=== PATIENT | female | born 1995 | race Caucasian/White ===

== ENCOUNTER 2024-08-03 07:14 | Inpatient (IN) | payer OTHER, SELFPAY ==
[2024-08-03] VITALS (18 sets, daily range): BP systolic 101–136; BP diastolic 56–86; PULSE 87–114; RESP 16–20; TEMP 36.3–37.1; O2SAT 97–99; BMI 35.2
[2024-08-03] MEDS: Lactated Ringers 1,000 ML 999 ML IV (07:25)
[2024-08-03 07:41] LABS: Absolute Lymphocyte Count 1.13 X10^3/uL (0.83-4.51); Basophil# 0.03 X10^3/uL; Basophil% 0.1 % (0-1); Eosinophil# 0.01 X10^3/uL; Hematocrit 37.3 % (37-47); Hemoglobin 12.3 g/dL (12.0-15.0); Lymphocyte # 1.13 X10^3/ul (0.83-4.51); Lymphocyte % 4.9 % (19-41); Mean Corpuscular Hgb 27.8 pg (27.0-32.0); Mean Corpuscular Volume 84.2 fL (81-99); Mean Platelet Vol. 11.2 fl (6.2-12.0); Monocyte# 0.53 X10^3/uL; Monocyte% 2.3 % (0-10); NRBC Flagged by Analyzer 0 % (0-5); Neutrophil # 20.99 X10^3/uL (2.7-7.7); Neutrophil % 91.7 % (47-70); POSITIVE DIFFERENTIAL YES; Platelet Count 264 K/mm3 (150-450); RBC Distribution Width CV 13.7 % (11.6-14.6); RBC Distribution Width SD 41.9 fl (35.1-43.9); Red Blood Count 4.43 M/mm3 (4.2-5.4); White Blood Count 22.9 K/mm3 (4.4-11.0)
[2024-08-03 07:47] LABS: Differential Indicated SCAN CRITERIA MET
--- NOTE | 2024-08-03 07:47 | HP.PCM.OB_ITS ---
HPI - General General Date of Admission: 08/03/24 HPI Narrative LEA PACK, is a 29 F @ 41 weeks who presents c/o SROM and ctx- found to be 8 cm on arrival. PFSH [facility] Home Medications ?Medication ?Instructions ?Recorded ?Last Taken ?Type aspirin 81 mg tablet,delayed 81 mg PO DAILY 08/03/24 U nknown History release (Adult Low Dose Aspirin) sertraline 50 mg tablet (Zoloft) 50 mg PO DAILY 08/01/24 20:00 History Allergy/AdvReac Type Severity Reaction Status Date / Time No Known Allergies Allergy Verified 08/03/24 06:51 NST FHR Rate Baby A Baseline: 135 Variability:: Moderate Decelerations:: Variable Vital Signs Vital Signs Vital Signs: 08/03/24 06:58 08/03/24 06:58 08/03/24 06:58 Temperature 97.8 F Temperature Source Temporal Pulse Rate Respiratory Rate 17 Blood Pressure BP Systolic BP Diastolic 08/03/24 07:04 08/03/24 07:04 Temperature Temperature Source Pulse Rate 96 Respiratory Rate Blood Pressure 132/86 H BP Systolic 132 BP Diastolic 86 Weight Weight: 102.115 kg Body Mass Index (BMI) 35.2 Physical Exam Narrative per nursing : VE: 8cm Const alert and oriented x3 General Appearance: cooperative HEENT normocephalic GI GI Narrative: Gravid, non tender to palpation. OB / External & Speculum: external exam normal Extremity normal to inspection Skin no rashes or lesions noted Neuro oriented x3 and CN's II-XII intact bilaterally Psych Appearance: grossly normal Labs Labs Labs: Hct 37.3 % (37-47) Hgb 12.3 g/dL (12.0-15.0) Assessment & Plan (1) 41 weeks gestation of : (2) SROM (spontaneous rupture of membranes): (3) Anxiety and depression: PLAN: Plan Admit to L&D [place] FHR/TOCO Epidural if requested for pain Monitor VS Anticipate
[2024-08-03] MEDS: Oxytocin 10 UNITS/ML Vial IM (08:37)
[2024-08-03] MEDS: Oxytocin 15 Units/NS 250ml 15 UNITS/250 ML IV.SOLN 83 UNITS IV (08:37)
--- NOTE | 2024-08-03 08:55 | EX.PCM.OBVAG ---
Vaginal Delivery Maternal Presentation Maternal Presentation: Active Labor and Spontaneous Rupture of Membranes (thinks water broke 4am 08/03/24 but upon further questioning patient reports has had soaked underwear at night for last two night so possibly on 08/01/24) Vaginal Delivery Information Procedure Performed: Spontaneous Vaginal Delivery Surgeon/Practitioner: Rubia Nowak Date of Procedure: 08/03/24 Pre-Procedure Diagnosis: 41 weeks, Srom, Active labor Post-Procedure Diagnosis: same, live female Type of anesthesia: None Estimated Blood Loss: 200 Time of Delivery: 08:33 Findings Description of procedure: Patient progressed to fully dilated. Good maternal pushing efforts delivered the head gentle downward traction delivered the anterior shoulder followed by the posterior shoulder and the rest the infant's body. She delivered through a loose nuchal antibody cord. There was a true knot also appreciated after delivery. The infant was placed on the mother's chest for immediate skin to skin. Pt recieved IM pitocin and IV pitocin. Placenta delivered intact without complication. First-degree vaginal laceration appreciated. 7 cc of 1% lidocaine was injected and laceration was repaired using 3-0 Vicryl suture. Excellent hemostasis was appreciated. Patient tolerated well. Fundus firm lochia normal. Presentation: Vertex Amniotic Membrane Rupture Type: Spontaneous Amniotic Fluid Description: Clear Placental Delivery Description: Expressed Placenta Disposition: [facility] Cord Vessel Description: 3 Vessels Cord Entanglement: Around neck x 1, loose and True Knot(s) Nuchal Cord Compression: With compression Infant A Gender: Female (1 minute): 8 (5 minute): 9 Delayed Cord Clamping: Yes Software Quality Manager senior manager: No Post Vaginal Deli Medications given after delivery: IV Pitocin and IM Pitocin Episiotomy Description: None Laceration: Vaginal Extension/lac and 1st degree Complication Complications: No
[2024-08-03] MEDS: Lidocaine 1% (20 ml mdv) 20 ML Vial INFILT (10:14)
[2024-08-03] MEDS: Ibuprofen 600 MG Tablet PO ×2 (10:49→20:36)
[2024-08-03] MEDS: 0.9% Saline Lock 10 ML Syringe IV (11:24)
[2024-08-03] MEDS: Sertraline 50 MG Tablet PO (22:51)
[2024-08-04 04:10] VITALS: BP 112/64; PULSE 95; RESP 16; TEMP 36.6; O2SAT 97
[2024-08-04] MEDS: Ibuprofen 600 MG Tablet PO ×3 (04:15→20:58)
--- NOTE | 2024-08-04 06:49 | NURSING ---
Attempted x1 for AM lab draw, unable to collect sample. Pt did not tolerate well, she became lightheaded and was shaking. Pt declines another attempt at this time and is requesting to get some sleep.
--- NOTE | 2024-08-04 08:19 | PCM.PN.OB ---
Subjective Subjective Doing well. Ambulating and voiding without difficulty. Mild lochia. Breast feeding. Objective Data Objective Data Vital Signs: Vital Signs Temp Pulse Resp BP Pulse Ox O2 Del Method 97.8 F 95 16 112/64 97 Room Air 08/04/24 04:10 08/04/24 04:10 08/04/24 04:10 08/04/24 04:10 08/04/24 04:10 08/04/24 04:10 Oxygen Delivery Method Room Air Weight: 102.115 kg Body Mass Index (BMI) 35.2 Intake & Output: Intake and Output for Last 24 Hours 08/02/24 08/03/24 08/04/24 23:59 23:59 23:59 Intake Total 870.52 / 870.52 Output Total 410 / 410 Balance 460.52 / 460.52 Lab / Micro Data 08/03/24 07:35 Labs: Laboratory Results - last 24 hr 08/03/24 07:25: Antibody Screen NEGATIVE ROS Constitutional Constitutional: Denies fatigue, fever(s) or malaise Eyes Eyes: Denies change in vision ENT HEENT: Denies dizziness or headache(s) Cardiovascular Cardiovascular: Denies chest pain, dyspnea or lightheadedness Respiratory/Chest Respiratory/Chest: Denies cough or dyspnea Gastrointestinal Gastrointestinal: Denies change in bowel habits Genitourinary Genitourinary: Denies burning urination or genital lesions Integumentary Integumentary: Denies rash Neurologic Neurologic: Denies confusion, dizziness, headache(s), numbness or weakness Physical Exam Const alert and no apparent distress Narrative: Fundus firm, below umbilicus. Assessment & Plan (1) (spontaneous vaginal delivery): PLAN: Plan 48 hour stay for prolonged ROM
[2024-08-04 08:30] VITALS: BP 109/79; PULSE 97; RESP 16; TEMP 36.2; O2SAT 99
[2024-08-04 11:29] LABS: Absolute Lymphocyte Count 2.47 X10^3/uL (0.83-4.51); Absolute Neutrophil Count 12.5 X10^3/uL (2.0-7.7); Basophil# 0.04 X10^3/uL; Basophil% 0.2 % (0-1); Eosinophil# 0.02 X10^3/uL; Eosinophils% 0.1 % (0-5); Hematocrit 30.8 % (37-47); Hemoglobin 10.1 g/dL (12.0-15.0); Lymphocyte # 2.47 X10^3/ul (0.83-4.51); Lymphocyte % 15.3 % (19-41); Mean Corp Hgb Conc 32.8 g/dL (32-36); Mean Corpuscular Hgb 28.2 pg (27.0-32.0); Mean Platelet Vol. 10.7 fl (6.2-12.0); Monocyte# 0.89 X10^3/uL; Monocyte% 5.5 % (0-10); NRBC Flagged by Analyzer 0 % (0-5); Neutrophil # 12.54 X10^3/uL (2.7-7.7); Neutrophil % 77.8 % (47-70); Platelet Count 230 K/mm3 (150-450); RBC Distribution Width SD 43.1 fl (35.1-43.9); Red Blood Count 3.58 M/mm3 (4.2-5.4); White Blood Count 16.1 K/mm3 (4.4-11.0)
[2024-08-04 14:30] VITALS: BP 117/69; PULSE 69; RESP 16; TEMP 36.4; O2SAT 97
--- NOTE | 2024-08-04 15:23 | CASEMGMT ---
Social Work Assessment - Labor and Delivery Unit Patient Address: [address] [place] [address] [address], [place] [address] Phone number: [phone] Date and Time of Referral:? 08/03/241813 Referred By: Dr. Damico Date and time of intervention:? 08/04/24957 Reason for Referral:??anxiety/ depression/ hx of self harm Sw completed chart review and acknowledges social work consult due to maternal mental health history. Sw presented to bedside and introduced self to mother of baby (MOB- Eryn) and father of baby (FOB- Miguel). Sw explained reason for sw involvement and completed psychosocial assessment. Informant:?? Medical record and mother of baby (MOB), father of baby (FOB) History:? ALEXSANDRA is 29 year old female who is 1, para 0- now 1 following labor and delivery of . ALEXSANDRA received routine care during with [facility]. ALEXSANDRA presented to hospital and delivered baby on 08/03/24 via vaginal delivery at 41 weeks gestation. Baby girl, named Jovan William, was born weighing 6lb 13oz with apgars of 8 and 9 at one and five minutes of life, respectfully. ALEXSANDRA reports that she and MANJEET have been together for 6 years after meeting each other online, they are and this is their first baby together. Both parent are gainfully employed outside of the home making decent living and are not connected to any community agencies that assist them financially. ALEXSANDRA reports to have natural supports in place that include FOB and her mother. FOB states that he has been diagnosed with anxiety and OCD- he is currently prescribed adderall by his PCP. FOB states that he thinks his anxiety is directly correlated to the OCD diagnoses. MOB reports to being diagnosed with anxiety and depression- she is currently prescribed zoloft by her PCP. Both paretns report that their mental health is managed and they do not have any issues, concerns or questions at this time. ALEXSANDRA states that she has heard the terms: baby blues and depression/ anxiety. Sw educated parents on signs and symptoms of both and explained red flags to be mindful of and when it would be important to talk to their PCP who prescribes their medications or MOB's OBGYN. Both parents express understanding. MBO states that she does have history of self harm- however this was during her adolescent years- nothing as an adult. MOB reports that her mental health was managed during her , and since delivery she denies feeling overwhelmed, anxious, sad or emotional. MOB reports to having a connection with baby and happy that she is here and is healthy. Assessment:? MOB and baby admitted following labor and delivery of . MOB with mental health history, positive for anxiety, depression and hx of self harm. MOB has been connected to mental health service providers, but is not at this time aside from her PCP who prescribes her zoloft. FOB also reports to having diagnoses of anxiety and OCD- also prescribed medication. Parents were receptive to meeting with sw and engaging throughout completion of assessment. While meeting with sw parents were holding baby lovingly and appropriately and attending to her when she cried. Plan:??? MOB and baby to be discharged when medically ready. Information provided regarding: shaken baby prevention, ABCs of safe sleep, Help Me Grow, list of [facility] resources and signs and symptoms of baby blues and depression/ anxiety. No further needs requested or indicated. Purnima Tejeda, VIDEO GAMES MECHANIC, PREPARATION ROOM MANAGER
[2024-08-04 20:50] VITALS: BP 119/76; PULSE 91; RESP 14; TEMP 36.5; O2SAT 97
[2024-08-04] MEDS: Sertraline 50 MG Tablet PO (23:46)
[2024-08-05 01:58] VITALS: BP 112/77; PULSE 75; RESP 15; TEMP 36.5; O2SAT 98
--- NOTE | 2024-08-05 08:39 | PCM.PN.OB ---
Subjective Subjective Doing well. Ambulating and voiding without difficulty. Mild lochia. Pumping and giving donor milk. Objective Data Objective Data Vital Signs: Vital Signs Temp Pulse Resp BP Pulse Ox O2 Del Method 97.7 F L 75 15 112/77 98 Room Air 08/05/24 01:58 08/05/24 01:58 08/05/24 01:58 08/05/24 01:58 08/05/24 01:58 08/05/24 01:58 Oxygen Delivery Method Room Air Weight: 102.115 kg Body Mass Index (BMI) 35.2 Intake & Output: Intake and Output for Last 24 Hours 08/03/24 08/04/24 08/05/24 23:59 23:59 23:59 Intake Total 870.52 / 870.52 Output Total 410 / 410 Balance 460.52 / 460.52 Lab / Micro Data 08/04/24 11:15 Labs: Laboratory Results - last 24 hr 08/04/24 11:15: WBC 16.1 H, RBC 3.58 L, Hgb 10.1 L, Hct 30.8 L, MCV 86.0, MCH 28.2, MCHC 32.8, RDW Std Deviation 43.1, RDW Coeff of Nahid 14.0, Plt Count 230, MPV 10.7, Immature Gran % (Auto) 1.100 H, Neut % (Auto) 77.8 H, Lymph % (Auto) 15.3 L, [place] % (Auto) 5.5, Eos % (Auto) 0.1, Baso % (Auto) 0.2, Absolute Neuts (auto) 12.5 H, Absolute Lymphs (auto) 2.47, Nucleated RBC % 0 ROS Constitutional Constitutional: Denies fatigue, fever(s) or malaise Eyes Eyes: Denies change in vision ENT HEENT: Denies dizziness or headache(s) Cardiovascular Cardiovascular: Denies chest pain, dyspnea or lightheadedness Respiratory/Chest Respiratory/Chest: Denies cough or dyspnea Gastrointestinal Gastrointestinal: Denies change in bowel habits Genitourinary Genitourinary: Denies burning urination or genital lesions Integumentary Integumentary: Denies rash Neurologic Neurologic: Denies confusion, dizziness, headache(s), numbness or weakness Physical Exam Const alert and no apparent distress Narrative: Fundus firm, below umbilicus. Assessment & Plan (1) (spontaneous vaginal delivery): PLAN: Plan Discharge home
--- NOTE | 2024-08-05 08:40 | DS.PCM_ITS ---
Providers Date of Admission: 08/03/24 Date of Discharge: 08/05/24 Primary Care Physician: Dr. Tano Lane DO Reason For Visit: VAGINAL DELIVERY Diagnosis Discharge Diagnosis (1) (spontaneous vaginal delivery): Status: Acute Code(s): O80 - Encounter for full-term uncomplicated delivery Plan Discharge home Medications at Discharge Home Medications sertraline 50 mg tablet (Zoloft) 50 mg PO DAILY 08/03/24 Hospital Course Operations None Procedures None Summary of Care Provided Minutes Spent on Discharge: 21 Hospital Course: Augmentation of labor after prolonged ROM. Uncomplicated vaginal delivery. Pumping Physical Exam Const alert and no apparent distress Narrative: Fundus firm, below umbilicus. Weight / BMI Weight Weight: 102.115 kg Body Mass Index (BMI) 35.2 ABG / Lab / Microbiology Data 08/04/24 11:15 Laboratory: Laboratory Results - last 24 hr 08/04/24 11:15: WBC 16.1 H, RBC 3.58 L, Hgb 10.1 L, Hct 30.8 L, MCV 86.0, MCH 28.2, MCHC 32.8, RDW Std Deviation 43.1, RDW Coeff of Nahid 14.0, Plt Count 230, MPV 10.7, Immature Gran % (Auto) 1.100 H, Neut % (Auto) 77.8 H, Lymph % (Auto) 15.3 L, [place] % (Auto) 5.5, Eos % (Auto) 0.1, Baso % (Auto) 0.2, Absolute Neuts (auto) 12.5 H, Absolute Lymphs (auto) 2.47, Nucleated RBC % 0 D/C Instructions Discharge Diet: No restrictions May resume sexual activity in: 6 weeks DC O2, CPAP, BIPAP Needs Home O2 Discharge instructions: No Please Follow Up With: Karolina Madden MD When: Follow up with our office in 1-2 and 6 weeks or as needed. [phone] Meaningful Use Info Meaningful Use Meaningful Use Diagnoses (Choose all that apply): None applicable Ischemic Stroke Statin Dosing Therapy Reference: STATIN DOSE THERAPY REFERENCE: * Patients > 75 years receive moderate or high dose statin therapy. * Patients 75 years or YOUNGER should receive HIGH intensity statin dose unless contraindicated. You will be required to document reason for non-treatment if statin daily dose does not meet guidelines. HIGH DOSE STATIN THERAPY DAILY Atorvastatin > than or = to 40 mg Rosuvastatin > than or = to 20 mg Amlodipine + Atorvastatin > than or = to 2.5/40 mg Ezetimibe + Simvastatin 10/80 mg Simvastatin 80mg Discharge Plan Admission Admit Date/Time: 08/03/24 07:14 Primary Reason for Your Visit: labor Attending Provider: Rubia Nowak Primary Care Provider: Tano Lane Discharge Orders/Prescriptions Prescriptions: Continued sertraline [Zoloft] 50 mg tablet 50 mg PO DAILY Discontinued aspirin [Adult Low Dose Aspirin] 81 mg tablet,delayed release (DR/EC) 81 mg PO DAILY Referrals / Follow Up: Tano Lane DO [Primary Care Provider] - Disposition Disposition (needs filled in before D/C Order can be placed): Home, Self Care
[2024-08-05 09:15] VITALS: BP 118/67; PULSE 85; RESP 16; TEMP 36.3; O2SAT 98
[2024-08-05] MEDS: Ibuprofen 600 MG Tablet PO (10:53)
[2024-08-05 13:18] VITALS: BP 116/68; PULSE 84; RESP 16; TEMP 36.8; O2SAT 98
== END 2024-08-05 14:10 | disposition home or self-care (01) | DRG 807 ==
LOC: WPOUT 07:17 → WP 07:17
PROVIDERS: Admitting Provider Obstetrics & Gynecology; PCP Family Medicine; Referring Provider Obstetrics & Gynecology; Visit Provider Obstetrics & Gynecology
DX: O48.0 Post-term pregnancy (principal); Z37.0 Single live birth; O99.344 Other mental disorders complicating childbirth; F32.A Depression, unspecified; F41.9 Anxiety disorder, unspecified; O70.0 First degree perineal laceration during delivery; O69.2XX0 Labor and delivery complicated by other cord entanglement, with compression, not applicable or unspecified; Z3A.41 41 weeks gestation of pregnancy; Z79.82 Long term (current) use of aspirin; Z79.899 Other long term (current) drug therapy
CPT/HCPCS: 59025; 59050; 85025; 86850; 86900; 86901; A4216